=== PATIENT | female | born 1995 | race American Indian/Alaskan Native ===

== ENCOUNTER 2018-03-08 06:30 | Emergency (ER) | payer OTHER ==
[2018-03-08 08:23] LABS: BASO % 0.3 % (0.0-2.0); EOS # 0.1 K/uL (0.0-0.7); EOS % 0.6 % (0.0-4.0); HEMOGLOBIN 9.8 g/dL (11.0-16.0); LYMPH # 1.7 K/uL (1.0-4.3); LYMPH % 13.6 % (20.0-40.0); MEAN CELL VOLUME 71.7 fL (81.0-99.0); MEAN CORPUSCULAR HEMOGLOBIN 22.6 pg (27.0-31.0); MEAN CORPUSCULAR HGB CONC 31.5 g/dL (33.0-37.0); MEAN PLATELET VOLUME 8.9 fL (7.2-11.7); MONO % 7.9 % (0.0-10.0); NEUT # 9.5 K/uL (1.8-7.0); NEUT % 77.6 % (50.0-75.0); NRBC % 0.1 % (0.0-2.0); RBC 4.35 Mil/uL (3.80-5.20); RED CELL DISTRIBUTION WIDTH 17.8 % (11.5-14.5); WHITE BLOOD COUNT 12.2 K/uL (4.8-10.8)
[2018-03-08 08:25] LABS: SQUAMOUS EPITHIAL 24 /hpf (0-5); URINE BACTERIA RARE (<OCC); URINE BILIRUBIN NEGATIVE (NEGATIVE); URINE BLOOD NEGATIVE (NEGATIVE); URINE CLARITY Hazy (Clear); URINE COLOR Amber (YELLOW); URINE GLUCOSE (UA) 1+ mg/dL (Normal); URINE LEUKOCYTE ESTERASE 3+ Leu/uL (Negative); URINE PROTEIN 2+ mg/dL (NEGATIVE)
[2018-03-08 08:34] LABS: BLOOD UREA NITROGEN 7 mg/dL (7-17); GFR NON-AFRICAN AMERICAN > 60
[2018-03-08 08:35] LABS: ALBUMIN 3.6 g/dL (3.5-5.0); ALT/SGPT 24 U/L (9-52); AST/SGOT 22 U/L (14-36); CALCIUM 8.4 mg/dl (8.6-10.4)
--- NOTE | 2018-03-08 09:10 | C.PDOC ---
History Of Present Illness 22 years old female, 32 weeks , [id number] presents to ED for complaints of occasional dizziness that began a month ago. Patient states she was evaluated last month and diagnosed with baseline vasovagal . Denies dysuria, dark stools, or any other complaints. Patient reports she is asymptomatic today. Time Seen by Provider: 03/08/18 07:09 Chief Complaint (Nursing): Dizziness/Lightheaded History Per: Patient History/Exam Limitations: no limitations Onset/Duration Of Symptoms: Hrs Current Symptoms Are (Timing): Still Present Associated Symptoms Preceding Syncopal Episode: No Predromal Symptoms (Sudden Onset) Seizure Or Post-ictal Symptoms: None Fall Associated With With Symptoms: No Recent travel outside of the [place]: No - Symptoms Of CVA Recent Aspirin Use: Unknown Current Coumadin Use?: Unknown Recent Head Trauma: No Past Medical History Reviewed: Historical Data, Nursing Documentation, Vital Signs Vital Signs: Last Vital Signs Temp 97.6 F 03/08/18 06:38 Pulse 106 H 03/08/18 06:38 Resp 14 03/08/18 06:38 BP 123/76 03/08/18 06:38 Pulse Ox 98 03/08/18 06:38 - Medical History PMH: No Chronic Diseases Surgical History: No Surg Hx Family History: States: No Known Family Hx - Social History Hx Alcohol Use: No Hx Substance Use: No - Immunization History Hx Tetanus Toxoid Vaccination: No Hx Influenza Vaccination: No Hx Pneumococcal Vaccination: No Review Of Systems Constitutional: Negative for: Fever, Chills Gastrointestinal: Negative for: Nausea, Vomiting, Abdominal Pain, Diarrhea Genitourinary: Negative for: Dysuria Skin: Negative for: Rash Neurological: Positive for: Dizziness. Negative for: Weakness, Numbness Physical Exam - Physical Exam Appears: Non-toxic, No Acute Distress Skin: Normal Color, Warm, Dry, No Rash Head: Atraumatic, Normacephalic Eye(s): bilateral: Normal Inspection, PERRL, EOMI Oral Mucosa: Moist Neck: Normal ROM, Supple Chest: Symmetrical, No Tenderness Cardiovascular: Rhythm Regular Respiratory: Normal Breath Sounds, No Rales, No Rhonchi, No Wheezing Gastrointestinal/Abdominal: Bowel Sounds (ACtive ), Soft, No Tenderness Extremity: Normal ROM Extremity: Bilateral: Atraumatic, Normal Color And Temperature, Normal ROM Pulses: Left Radial: Normal, Right Radial: Normal Neurological/Psych: Oriented x3, Normal Speech, Normal Motor, Normal Sensation, Normal Reflexes Gait: Steady ED Course And Treatment - Laboratory Results Result Diagrams: 03/08/18 08:05 03/08/18 08:05 Lab Interpretation: Abnormal (UA 102 WBC's) O2 Sat by Pulse Oximetry: 98 (RA) Pulse Ox Interpretation: Normal Medical Decision Making Medical Decision Making: Plan: Macrobid EKG Blood Work Blood culture Urine Culture Urinalysis Progress: Stood patient up and walked her- she had no signs of dizziness. mild UTI 102 WBC's Macrobid x 5 days Mild serum leukocytosis LOW susp of Pyelo clinically prob c/w preg dilutional anemia c/w preg Disposition Doctor Will See Patient In The: Office Counseled Patient/Family Regarding: Studies Performed, Diagnosis - Disposition Referrals: Deanna Pickard [Medical Doctor] - Disposition: HOME/ ROUTINE Disposition Time: 09:29 Condition: GOOD Additional Instructions: mild UTI 102 WBC's Macrobid 100 mg (antibiotic) twice a day for 5 days Repeat UA with OBGYN in 5 days Dizziness worse with standing from sitting or prolonged standing more c/w vasovagal/ no anemia Prescriptions: Nitrofurantoin Macrocrystals [Macrobid] 1 cap PO BID #9 cap Instructions: Urinary Tract Infection, Adult (DC), Vasovagal Response Forms: Quack (Occitan) - Clinical Impression Clinical Impression: Dizziness, UTI in - Scribe Statement The provider has reviewed the documentation as recorded by the Karinaibsangita Almeida All medical record entries made by the Scribe were at my direction and personally dictated by me. I have reviewed the chart and agree that the record accurately reflects my personal performance of the history, physical exam, medical decision making, and the department course for this patient. I have also personally directed, reviewed, and agree with the discharge instructions and disposition.
[2018-03-08 10:00] VITALS: BP 112/72; PULSE 98; RESP 18; TEMP 98
[2018-03-08 10:33] VITALS: O2SAT 98
== END 2018-03-08 10:00 | disposition home or self-care (01) ==
LOC: C.ER 06:30
DX: O23.43 Unspecified infection of urinary tract in pregnancy, third trimester (principal); O26.893 Other specified pregnancy related conditions, third trimester; R42 Dizziness and giddiness; Z3A.32 32 weeks gestation of pregnancy

== ENCOUNTER 2018-04-28 02:34 | Inpatient (IN) | payer OTHER ==
[2018-04-28 03:29] VITALS: BMI 32.0
--- NOTE | 2018-04-28 03:34 | OBHP ---
Datetime: 04/28/2018 03:15 IP Adm Impression: Term, intrauterine IP Admit Plan: Observation/Evaluation Admit Comment, IP Provider: 22 y/o at 39.3 wks with c/o ctx started yesterday. No c/o VB or LOF . + FM. PMH: Denies PSH: Lolita POBH: x 1 @ 6.7 lbs 2013 Labs: O positive, RPRP NR, HIV Negative, Hep B negativeRubella- Equivocal GBS_ Negative Urine positive for S. Epidermidis on Antibitics VE: /-2 TOCO: CTx q 3-5 min EFM:Cat 1 _ A/P: 22 y/o at 39.3 wks R/O Labor Observation Extremities - PN: Normal Abdomen - PN: Normal Presentation-Admit: Vertex FHR - Baseline A Provider: 140 Membranes, Provider: Intact Contraction Comments Provider: 3-9 Comments, ACOG Physical Exam: ABD: Soft, NT EXTR: No calf tenderness Gestation - Est Wks by US: 39.3 EGA AdmitDate IP: 39.3 Vital Signs Provider: Reviewed; Within Normal Limits IP Chief Complaint: Uterine contractions NICHD Variability Prov Fetus A: Moderate 6-25bpm NICHD Accel Fetus A IP Provider: 15X15 FHR Category Provider Fetus A: Category I NICHD Decel Fetus A IP Provider: None Dilatation, Provider: 3 Effacement, Provider: 60 Station, Provider: -2 Genitourinary Exam: Normal
[2018-04-28] MEDS ORDERED: Lactated Ringer's 1,000 ML IV SCH (06:30)
--- NOTE | 2018-04-28 06:56 | OBADHP ---
Datetime: 04/28/2018 03:15 Admit Comment, IP Provider: 22 y/o at 39.3 wks with c/o ctx started yesterday. No c/o VB or LOF . + FM. PMH: Denies PSH: Deneis POBH: x 1 @ 6.7 lbs 2013 Labs: O positive, RPRP NR, HIV Negative, Hep B negativeRubella- Equivocal GBS_ Negative Urine positive for S. Epidermidis on Antibitics VE: /-2 TOCO: CTx q 3-5 min EFM:Cat 1 _ A/P: 22 y/o at 39.3 wks R/O Labor Observation Pelvic Type - PN: Adequate Extremities - PN: Normal Abdomen - PN: Normal Back - PN: Normal Breast - PN: Normal Lungs - PN: Normal Heart - PN: Normal Thyroid - PN: Normal Neurologic - PN: Normal HEENT - PN: Normal General - PN: Normal Presentation-Admit: Vertex FHR - Baseline A Provider: 140 Membranes, Provider: Intact Contraction Comments Provider: 3-9 Comments, ACOG Physical Exam: ABD: Soft, NT EXTR: No calf tenderness Gestation - Est Wks by US: 39.3 Vital Signs Provider: Reviewed; Within Normal Limits IP Chief Complaint: Uterine contractions NICHD Variability Prov Fetus A: Moderate 6-25bpm NICHD Accel Fetus A IP Provider: 15X15 FHR Category Provider Fetus A: Category I NICHD Decel Fetus A IP Provider: None Dilatation, Provider: 3 Effacement, Provider: 60 Station, Provider: -2 Genitourinary Exam: Normal DTRs - PN: Normal EGA AdmitDate IP: 39.3 IP Adm Impression: Term, intrauterine IP Admit Plan: Observation/Evaluation
[2018-04-28 07:15] LABS: BASO # 0.1 K/uL (0.0-0.2); BASO % 0.9 % (0.0-2.0); EOS # 0.3 K/uL (0.0-0.7); EOS % 1.9 % (0.0-4.0); HEMOGLOBIN 9.7 g/dL (11.0-16.0); LYMPH # 2.4 K/uL (1.0-4.3); LYMPH % 17.8 % (20.0-40.0); MEAN CELL VOLUME 71.1 fL (81.0-99.0); MEAN CORPUSCULAR HEMOGLOBIN 22.1 pg (27.0-31.0); MEAN CORPUSCULAR HGB CONC 31.1 g/dL (33.0-37.0); MEAN PLATELET VOLUME 9.6 fL (7.2-11.7); MONO % 7.4 % (0.0-10.0); NEUT # 9.8 K/uL (1.8-7.0); NRBC % 0.2 % (0.0-2.0); RBC 4.4 Mil/uL (3.80-5.20); RED CELL DISTRIBUTION WIDTH 18.3 % (11.5-14.5); WHITE BLOOD COUNT 13.7 K/uL (4.8-10.8)
[2018-04-28 07:28] LABS: ALB/GLOB RATIO 1.2 (1.0-2.1); ALT/SGPT 86 U/L (9-52); AST/SGOT 67 U/L (14-36); BLOOD UREA NITROGEN 7 mg/dL (7-17); CALCIUM 8.6 mg/dl (8.6-10.4); GFR NON-AFRICAN AMERICAN > 60
[2018-04-28] MEDS ORDERED: Bupivacaine HCl/FentaNYL Cit 100 ML EPI ONE (07:43)
[2018-04-28 08:04] LABS: SQUAMOUS EPITHIAL 25 /hpf (0-5); URINE AMORPHOUS SEDIMENT RARE /ul (<OCC); URINE BACTERIA RARE (<OCC); URINE BILIRUBIN NEGATIVE (NEGATIVE); URINE BLOOD NEGATIVE (NEGATIVE); URINE CLARITY Hazy (Clear); URINE COLOR Yellow (YELLOW); URINE GLUCOSE (UA) 1+ mg/dL (Normal); URINE LEUKOCYTE ESTERASE 3+ Leu/uL (Negative); URINE PROTEIN NEGATIVE (NEGATIVE)
--- NOTE | 2018-04-28 08:26 | OBPN ---
Datetime: 04/28/2018 08:24 IP Progress Impression: Normal progression of labor IP Procedures: Artificial ROM; Sterile Vag Exam Contraction Comments Provider: q1-4 FHR - Baseline A Provider: 130 IP Progress Note Comment: pt was examined at bed side ve 6/80/-2 arom clear tart pitocin anticipate Vital Signs Provider: Reviewed; Within Normal Limits NICHD Accel Fetus A IP Provider: 15X15 FHR Category Provider Fetus A: Category I NICHD Variability Prov Fetus A: Moderate 6-25bpm Dilatation, Provider: 5 Effacement, Provider: 80 Station, Provider: -2 Datetime: 04/28/2018 03:15 Membranes, Provider: Intact Gestation - Est Wks by US: 39.3 Presentation-Admit: Vertex NICHD Decel Fetus A IP Provider: None
[2018-04-28] MEDS ORDERED: Oxytocin 30 UNIT 30 UNITS/500 ML BAG IV SCH (08:30)
[2018-04-28] MEDS ORDERED: Oxytocin 30 UNIT 30 UNITS/500 ML BAG IV ONE (08:41)
--- NOTE | 2018-04-28 10:38 | OBDS ---
DELIVERY PERSONNEL Delivery Doctor: Chip Garcia MD Scrub Nurse: Yaima Avila Transmission Specialist: Jolanta Rm RN Resident: génesis MATERNAL INFORMATION Delivery Anesthesia: Epidural Medications in Delivery: pitocin 20 Estimated Blood Loss (ml): 350 Placenta Cultured: Yes Maternal Complications: None Provider Comments: baby de;iverd in diane. emnd clear 9/9 no com LABOR SUMMARY EDC: 05/02/2018 00:00 No. Babies in Womb: 1 LABOR INFORMATION Group B Beta Strep: Negative STAGES OF LABOR Stage 3 hrs: 0 Stage 3 min: 7 VAGINAL DELIVERY Episiotomy: None Laceration Extension: Second Degree Laceration Type: Perineal Laceration Repair: Yes Laceration Repair Note: repaired with 2 and 3 chromic Initial Vag Sponge Count: 10 Final Vag Sponge Count: 20 Initial Vag Sharps Count: 2 Final Vag Sharps Count: 2 Sponge Count Correct: Yes Sharps Count Correct: Yes BABY A INFORMATION Infant Delivery Date/Time: 04/28/2018 10:24 Method of Delivery: Vaginal Born in Route : No : N/A Forceps: N/A Vacuum Extraction: N/A Shoulder Dystocia : No SHOULDER DYSTOCIA BABY A Infant Delivery Date/Time: 04/28/2018 10:24 PRESENTATION/POSITION BABY A Presentation: Cephalic Cephalic Presentation: Vertex Vertex Position: Left Occipital Anterior Breech Presentation: N/A PLACENTA INFORMATION BABY A Placenta Delivery Time : 04/28/2018 10:31 Placenta Method of Delivery: Spontaneous Placenta Status: Delivered SCORES BABY A Heart Rate 1 min: >100 bpm Resp Effort 1 min: Good Cry Reflex Irritability 1 min: Cough or Sneeze or Pulls Away Muscle Tone 1 min: Active Motion Color 1 min: Body Rembert, Extremities Blue Resuscitation Effort 1 min: Tactile Stimulation SCORE 1 MIN: 9 Heart Rate 5 min: >100 bpm Resp Effort 5 min: Good Cry Reflex Irritability 5 min: Cough or Sneeze or Pulls Away Muscle Tone 5 min: Some Flexion of Extremities Color 5 min: Completely Rembert SCORE 5 MIN: 9 INFANT INFORMATION BABY A Gestational Age at Delivery: 39.0 Gestational Status: Term Infant Outcome : Liveborn Condition : Stable Sex: Female IDENTIFICATION/MEDS BABY A ID Band Number: [id number] ID Band Location: Left Leg; Left Arm Sensor Applied: Yes Sensor Number: [id number] Sensor Location : Cord Clamp WEIGHT/LENGTH BABY A Infant Birthweight (gms): 2620 Weight (lb): 5 Weight (oz): 12 Infant Length Inches: 17.75 Infant Length cms: 45.1 CORD INFORMATION BABY A No. Cord Vessels: 3 Nuchal Cord : N/A Cord Blood Taken: N/A Infant Suction: Mouth; Nose
[2018-04-28] MEDS ORDERED: Oxycodone/Acetaminophen 5/325 mg Tab PO PRN (10:40)
[2018-04-29] MEDS ORDERED: Benzocaine/Menthol 20%-0.5% Topical Spray (60 ml) TOP PRN (07:30)
[2018-04-29 07:32] LABS: BASO # 0.1 K/uL (0.0-0.2); BASO % 0.4 % (0.0-2.0); EOS # 0.2 K/uL (0.0-0.7); EOS % 1.2 % (0.0-4.0); LYMPH # 2.5 K/uL (1.0-4.3); LYMPH % 17.2 % (20.0-40.0); MEAN CELL VOLUME 70.4 fL (81.0-99.0); MEAN CORPUSCULAR HGB CONC 31.2 g/dL (33.0-37.0); MEAN PLATELET VOLUME 9.4 fL (7.2-11.7); MONO # 1.2 K/uL (0.0-0.8); NEUT # 10.7 K/uL (1.8-7.0); NEUT % 73.2 % (50.0-75.0); NRBC % 0.1 % (0.0-2.0); RBC 3.44 Mil/uL (3.80-5.20); WHITE BLOOD COUNT 14.6 K/uL (4.8-10.8)
[2018-04-29 07:39] LABS: HEMOGLOBIN 7.6 g/dL (11.0-16.0)
[2018-04-29 09:27] VITALS: RESP 18
--- NOTE | 2018-04-29 10:32 | OBPPN ---
Datetime: 04/29/2018 07:39 PP Pain Prov: Within normal limits PP Nausea Prov: Denies PP Flatus Prov: Yes PP BM Prov: No PP Impression Prov: Normal progression PP Plan Prov: Continue present management; Discharge PP Progress Note Prov: Patient seen and examined at bedside. Per nursing patient had a 101 temperatu re last night, however patient had many blankets on. She has been afebrile since then. Her pain is co ntrolled, lochia is mild. She is ambulating and tolerating diet. Reports passing flatus and has not h ad a bowel movement yet. Urinating without difficulty. She is breast pumping and bottle feeding. Portillo es fevers, chills, headaches, dizziness, cp, palpitations, sob, abdominal pain, urinary symptoms. VS: Temp 98.8, BP 106/64, HR 92 Gen: AAOx3 CV: RRR Lungs: CTA B/L Abdomen: Soft, Fundus firm at umbilicus Ext: No clubbing, cyanosis, edema; no calf tenderness Labs: O positive Rubella equivocal 13.7<9.7/31.3<191 AST/ALT: 67/86 14.6<7.6/24.2<147 A/P: Patient is a 22 yo at 39w3d s/p w second perineal laceration PPD#1 -Stable, afebrile -Pain control with Motrin as needed -Encourage ambulation and hydration -Anemia: We will increase Ferrous sulfate 325mg PO TID, Colace 100mg PO TID -Elevated LFTs: We will repeat CMP today -MMR to be given prior to discharge -Continue routine care -Plan discussed with Dr Mario Burk DO PGY-2 Attending Note: patient seen, evaluated and examined by me with the Resident. I agree with the abo ve. Chronic anemia; decrease in H/H noted. Patient is asymptomatic and apparently hemodynamically sta ble. Patient clinically stable. Plan: as above. Vital Signs Provider PP: Reviewed; Within Normal Limits
[2018-04-29 11:32] LABS: ALBUMIN 3.1 g/dL (3.5-5.0); ALT/SGPT 65 U/L (9-52); AST/SGOT 56 U/L (14-36); BLOOD UREA NITROGEN 5 mg/dL (7-17); CALCIUM 8.4 mg/dl (8.6-10.4); GFR NON-AFRICAN AMERICAN > 60
[2018-04-29 17:02] VITALS: O2SAT 100
[2018-04-29] MEDS ORDERED: Gentamicin 80 mg/2mL Inj. IVPB ONE (21:33)
[2018-04-29] MEDS ORDERED: Gentamicin 300 MG in Sodium Chloride 0.9% 250 ML IVPB ONE (21:45)
--- NOTE | 2018-04-29 23:21 | OBPPN ---
Datetime: 04/29/2018 23:10 PP Progress Note Prov: Notified by R.N. at approximately 2015 hours: patient on the toilet - "someth ing is hanging out" Patient received on toilet in room 451, "tissue" noted to be hanging from the vagina Patient was assisted back to her bed; assumed the supine position Using a ring forceps, what looks like retained products of conception was removed. Attempt made to performe bimanual examination/ uterine exploration. Patient unable to tolerate Speculum exam: cervix visualized in total - no active bleeding. Abdomen: Obese. Soft. Non tender, non distended. Fundus contracted and firm, at umbilicus to 1 fin gerbreadth below. Assessment: PPD#!, 22 y.o. P2, S/P retrieval of retained products of conception. Chroinc anemia - asymptomatic and hemodynamicaly stable. D/W patient the following: a) NPO until after ultrasound is resulted b) cytotec 600 micrograms bucally x 1 c) pad count d) pelvic/ TV ultrasound in AM e) Gent/Clinda IVP x 1 dose each e) Close observation Vital Signs Provider PP: Reviewed; Within Normal Limits
--- NOTE | 2018-04-30 06:52 | OBPPN ---
Datetime: 04/30/2018 06:28 PP Pain Prov: Within normal limits PP Nausea Prov: Denies PP Breasts Prov: Not Done PP Heart Prov: Normal PP Lungs Prov: Normal PP Abdomen/Uterus Prov: Normal PP Lochia Prov: Normal PP Vulva/Perineum Prov: Not Done PP Extremities Prov: Normal PP C/S Incision Prov: Not Applicable PP Progress Prov: Not Applicable PP Comments Phys Exam Prov: Abdomen: soft. non distended. Fundus firm, mobile non tender, 1 FB below umbilicus. Extremities: no calf tenderness, PP Plan Prov: Continue present management PP Progress Note Prov: Notified by R.N. at 0600 hours, the father of the father of the baby wanted t o speak to the provider environmental field technician Patient received in room 451, the father of the baby and his parents present. Patient awake alert, oritneted to time person and place. Reports abdominal cramping improved. Also reported had changed t wo sanitary napkins after "procedure". The first one was soaked, the second one not so. Also, the chi lls she had experienced had abated. It had been explained to the patient last night, the chills she experienced was a side effect of the medications that had been administerd to help assure uterine chema cuation. Assessment: PPD#2 22 y.o. P2, S/P removal of retained products of conception. Afebrile, vital sign s stable. Mild lochia rubra - within normal uterus. Chronic anemia; on iron supplementation. Also, mi ldly elevated LFs on admission are trending down. Patient is clinically stable. Plan: 1) Maintain NPO 2) Continue IVFs 3) Pelvic/transvaginal ultrasound this morning 4) Continue pad count 5) Follow up CBC and CMP - case endorsed to oncoimng Attending. Vital Signs Provider PP: Reviewed; Within Normal Limits
[2018-04-30 08:00] VITALS: BP 106/67; PULSE 84; TEMP 97.7
[2018-04-30] MEDS ORDERED: Measles, Mumps, and Rubella 0.5 ML VIAL SC ONE (08:00)
[2018-04-30 08:19] LABS: BASO # 0.1 K/uL (0.0-0.2); BASO % 0.7 % (0.0-2.0); EOS # 0.3 K/uL (0.0-0.7); EOS % 1.7 % (0.0-4.0); HEMOGLOBIN 7.4 g/dL (11.0-16.0); LYMPH % 19.8 % (20.0-40.0); MEAN CELL VOLUME 70.5 fL (81.0-99.0); MEAN CORPUSCULAR HEMOGLOBIN 21.8 pg (27.0-31.0); MEAN PLATELET VOLUME 9.7 fL (7.2-11.7); MONO # 1.3 K/uL (0.0-0.8); MONO % 8.9 % (0.0-10.0); NEUT # 10.4 K/uL (1.8-7.0); NEUT % 68.9 % (50.0-75.0); NRBC % 0.1 % (0.0-2.0); RBC 3.38 Mil/uL (3.80-5.20); RED CELL DISTRIBUTION WIDTH 18.1 % (11.5-14.5); WHITE BLOOD COUNT 15.2 K/uL (4.8-10.8)
--- NOTE | 2018-04-30 10:50 | US ---
Date of service: 04/30/2018 HISTORY: retained prod of conception COMPARISON: None available. TECHNIQUE: Real-time transabdominal pelvic ultrasound was performed. In addition a transvaginal pelvic ultrasound was necessary to better depict pelvic anatomy. FINDINGS: UTERUS: Measures 19.6 x 10.0 x 11.7 cm. ENDOMETRIUM: Measures 2.4 cm in diameter. No associated increased vascularity appreciated. CERVIX: No cervical abnormality identified. RIGHT OVARY: Not visualized. LEFT OVARY: Not visualized. FREE FLUID: No significant free fluid noted. OTHER FINDINGS: None. IMPRESSION: Limited study. Bilateral ovaries not visualized. Thickened endometrium measuring approximately 2.4 cm in dimension. No evidence of associated increased vascularity.
[2018-04-30 11:40] LABS: ALBUMIN 2.9 g/dL (3.5-5.0); ALT/SGPT 66 U/L (9-52); AST/SGOT 48 U/L (14-36); BLOOD UREA NITROGEN 4 mg/dL (7-17); CALCIUM 8.1 mg/dl (8.6-10.4); GFR NON-AFRICAN AMERICAN > 60
--- NOTE | 2018-04-30 11:45 | OBPPN ---
Datetime: 04/30/2018 11:41 PP Pain Prov: Within normal limits PP Nausea Prov: Denies PP Breasts Prov: Normal PP Abdomen/Uterus Prov: Normal PP Lochia Prov: Normal PP Comments Phys Exam Prov: Fundus 1fb below umbilicus, firm PP Impression Prov: Normal progression PP Plan Prov: Discharge PP Progress Note Prov: s/p PPD#2 VSS pelvic US reviewed- thickened endo without vascularity noted, lochia WNL Bleeding precautions discussed Rx for methergine 0.2mg PO q6h x 24hours given DC home, follow up with [facility]
--- NOTE | 2018-04-30 12:02 | OBDCSUM ---
Datetime: 04/30/2018 11:47 Discharged to, Provider: Home Follow up at, Provider: clinic Disch Instr Activity: Normal activity Disch Instr Diet: Regular Discharge Instructions, Provider: Routine instructions given Discharge Diagnosis, Provider: Term Delivered Follow up in weeks, Provider: 2 weeks Disch Activity Restrictions: No sexual activity; Nothing in vagina - [place], tampons, douche Discharge Comment, Provider: s/p NSD PPD#2 complicated by RPOC. Repeat H/H stable. Pelvic US reveale d 2.4cm endometrial strip with no vascularity noted. Likely residual blood- Rx for methergine x 24 ho urs given. Acute blood loss anemia- Rx for ferrous sulfate BID given. Fundus firm, lochia WNL. DC jerry e with follow up in [facility].
== END 2018-04-30 16:10 | disposition home or self-care (01) | DRG 372 ==
LOC: C.EROB 02:34 → C.4D 06:13 → C.4M 11:44
PROVIDERS: ADMIT Obstetrics & Gynecology; ATTEND Obstetrics & Gynecology
PROC: 10E0XZZ Delivery of Products of Conception, External Approach (ICD-10-PCS; principal; 2018-04-28)
PROC: 0KQM0ZZ Repair Perineum Muscle, Open Approach (ICD-10-PCS; 2018-04-28)
DX: O99.02 Anemia complicating childbirth (principal); O73.1 Retained portions of placenta and membranes, without hemorrhage; D64.9 Anemia, unspecified; O70.1 Second degree perineal laceration during delivery; Z3A.39 39 weeks gestation of pregnancy; Z37.0 Single live birth; R79.89 Other specified abnormal findings of blood chemistry; O75.89 Other specified complications of labor and delivery